=== PATIENT | female | born 1980 | race Caucasian/White ===

== ENCOUNTER → 2021-01-04 09:55 | Outpatient (CLI) | payer SELFPAY, OTHER ==
[2014-08-24 08:30] VITALS: BMI 35.2
--- NOTE | 2021-01-04 10:06 | RAD_ITS ---
HISTORY: PAIN IN L FOOT/ANKLE/HEEL. TECHNIQUE: XR Ankle Min 3 Views. Number of images including paperwork: 3. COMPARISON: None. FINDINGS: OSSEOUS STRUCTURES: No acute fracture. Smooth talar dome. Mineralization unremarkable. JOINT SPACES: Ankle mortise maintained. No dislocation. RAD/Ankle min 3 Views IMPRESSION: No acute fracture or dislocation identified in the left ankle. at 1501 Reported and signed by: Ebony Gomez MD Electronically Signed: Ebony Gomez MD at 15:00 EDT Tel , Service support ,
== END ==
PROVIDERS: PCP Nurse Practitioner Family; Referring Provider Nurse Practitioner Family; Visit Provider Nurse Practitioner Family
DX: M25.572 Pain in left ankle and joints of left foot (principal); M79.672 Pain in left foot
CPT/HCPCS: 73610

== ENCOUNTER 2022-08-09 16:01 | Emergency (ER) | payer OTHER, SELFPAY ==
[2022-08-09 16:02] VITALS: BP 160/93; PULSE 112; RESP 16; TEMP 36.1; O2SAT 100; BMI 32.5
[2022-08-09 17:49] VITALS: O2SAT 99
--- NOTE | 2022-08-09 17:49 | EKG12_ITS ---
Test Reason : PALP Blood Pressure : / mmHG Vent. Rate : 106 BPM Atrial Rate : 106 BPM P-R Int : 168 ms QRS Dur : 088 ms QT Int : 364 ms P-R-T Axes : 037 001 034 degrees QTc Int : 483 ms Sinus tachycardia Otherwise normal ECG Confirmed by KAN PANIAGUA, FIDE ([id number]), science editor RAMIRO DUPONT ([id number]) on 08/13/2022 11:19:24 AM Referred By: Confirmed By:FIDE OMER MD
[2022-08-09 18:02] VITALS: BP 151/93; PULSE 100; RESP 14; O2SAT 99
--- NOTE | 2022-08-09 18:05 | EDS_ITS ---
HPI History of Present Illness Chief Complaint: Palpitations Narrative Narrative: 41-year-old female presenting for evaluation. She states that on Saturday she started to feel tingling throughout her whole entire body. She states that she felt a little bit off. 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 At that point she drank a lot of water over the course of the day and states she drank about a gallon. Yesterday she had liquid IV and some more water she states that her symptoms are improving although she did have a lot of diarrhea. Her diarrhea is also improving she is not nauseous but does not want to eat food. She can drink plenty of fluids without difficulty. She also states that her father who she saw over the weekend had a fever and nausea as well. The patient herself has not had a fever. She does not have a cough or shortness of breath but she is having palpitations. She states that her pulse ox at home when she checked it showed her heart rate being 120. She is not having chest pain. She does relate that she has had a slight headache. She states that ibuprofen is helping this. She does have a history of migraines. She does not think her headache is not severe. PFSH PFSH Medical History no medical history Allergy/AdvReac Type Severity Reaction Status Date / Time No Known Allergies Allergy Verified 08/09/22 16:07 Surgical History (Updated 08/09/22 @ 18:49 by Gudelia Melvin) H/O dilation and curettage Social History Smoking Status: Never smoker ROS ROS ED Constitutional Constitutional ED: Denies chills, fever(s) or sweats Eyes Eyes: Denies blurry vision or change in vision ENT ENT ED: Denies ear pain or sore throat Cardiovascular Cardiovascular: Reports palpitations and racing heartbeat; Denies chest pain Respiratory/Chest Respiratory/Chest: Denies cough, dyspnea or sputum Gastrointestinal Gastrointestinal: Reports diarrhea; Denies abdominal pain, constipation, nausea or vomiting Genitourinary Genitourinary ED: Denies dysuria, hematuria or urinary frequency Musculoskeletal Musculoskeletal: Denies arthralgias, myalgias or neck pain Integumentary Denies abscess, Abrasions or rash Neurologic Neurologic: Reports headache(s); Denies paresthesias Psychiatric Psychiatric: Denies anxiety, depression, suicidal ideation or suicidal thoughts Endocrine Endocrinology: Denies polydipsia or polyuria EXAM Physical Exam Const Vital Signs: 08/09/22 16:02 08/09/22 18:51 08/09/22 17:49 Temperature 97.0 F L Temperature Source Temporal Pulse Rate 112 H Respiratory Rate 16 Respiratory Effort Normal Non-Labored Respiratory Pattern Normal Blood Pressure 160/93 H Blood Pressure Mean 115 Pulse Ox 100 99 Oxygen Delivery Method Room Air Room Air 08/09/22 18:02 08/09/22 21:45 Temperature Temperature Source Pulse Rate 100 90 Respiratory Rate 14 16 Respiratory Effort Respiratory Pattern Blood Pressure 151/93 H 140/89 H Blood Pressure Mean 112 Pulse Ox 99 98 Oxygen Delivery Method Room Air Positive well nourished General Appearance ED: NAD; Negative for pallor HEENT Reports moist mucous membranes Negative for trauma or tenderness Eyes PERRL and EOMs intact bilaterally General Eye ED: Negative for pale conjunctiva or scleral icterus Neck no lymphadenopathy Chest Wall inspection of chest normal and palpation of chest normal Resp normal respiratory effort and clear to auscultation bilaterally Cardio regular rhythm Rate: tachycardic GI normal to inspection, nondistended, normoactive bowel sounds Back/Spine no CVA tenderness Extremity normal to inspection Neuro oriented x3 and CN's II-XII intact bilaterally Sensorium / Orientation: alert Psych mental status grossly normal Skin no rashes or lesions noted and no wounds General Skin Exam: Negative for jaundice or pallor MDM MDM MDM Narrative Medical decision making narrative: Patient presenting with a myriad of complaints. He states all of her symptoms started when she was painting and on ventilated room and did not drink a lot of water. She also states that she has a sick contact and that her father was sick over the weekend and she was in contact with him. He had a fever and nausea. The patient self states she is feeling better she is concerned her heart rate has been fast. She has been drinking fluids frequently over the last couple of days and describes a wave of tingling throughout her entire body. Since patient feels she might be dehydrated and her heart rate is fast I will check a CBC for white blood cell count, hemoglobin, differential. BMP for renal function and electrolytes, glucose and anion gap. EKG to assess for dysrhythmia due to palp itations. High-sensitivity troponin as well. I did obtain a D-dimer. Chest x- ray will also be included. CBC shows normal white blood cell count 8.2. Hemoglobin stable 13.6. Platelets are normal at 269. D-dimer was negative at 0.27. Renal function electrolytes within normal limits. High-sensitivity troponin 4. Delta troponin 5. Chest x-ray my interpretation shows no acute cardiopulmonary process. Radiologist services and agrees. At this point I feel the patient is stable for discharge. Return precautions were discussed. Impression: 1. Weakness unknown cause 2. Palpitations 3. Exposure to paint fumes Lab Data Labs: Laboratory Results - last 24 hr 08/09/22 08/09/22 08/09/22 18:40 18:40 18:40 WBC 8.2 RBC 4.60 Hgb 13.6 Hct 41.3 MCV 89.8 MCH 29.6 MCHC 32.9 RDW Std Deviation 44.8 H RDW Coeff of Soo 13.7 Plt Count 269 MPV 9.6 Immature Gran % (Auto) 0.200 Neut % (Auto) 78.6 H Lymph % (Auto) 16.3 L [place] % (Auto) 4.3 Eos % (Auto) 0.2 Baso % (Auto) 0.4 Absolute Neuts (auto) 6.4 Absolute Lymphs (auto) 1.34 Nucleated RBC % 0 D-Dimer Quant (PE/DVT) 0.27 Sodium 140 Potassium 3.6 Chloride 107 Carbon Dioxide 25.0 Anion Gap 8 BUN 9 Creatinine 0.80 Estim Creat Clear Calc 84.88 Est GFR (MDRD) Af Amer 100 Est GFR (MDRD) Non-Af 83 BUN/Creatinine Ratio 11.2 Glucose 113 H Calcium 9.3 Troponin I High Sens 4 08/09/22 21:18 WBC RBC Hgb Hct MCV MCH MCHC RDW Std Deviation RDW Coeff of Soo Plt Count MPV Immature Gran % (Auto) Neut % (Auto) Lymph % (Auto) [place] % (Auto) Eos % (Auto) Baso % (Auto) Absolute Neuts (auto) Absolute Lymphs (auto) Nucleated RBC % D-Dimer Quant (PE/DVT) Sodium Potassium Chloride Carbon Dioxide Anion Gap BUN Creatinine Estim Creat Clear Calc Est GFR (MDRD) Af Amer Est GFR (MDRD) Non-Af BUN/Creatinine Ratio Glucose Calcium Troponin I High Sens 5 Radiography Diagnostic Testing: Clinical Impression(s) from Imaging Studies Chest X-Ray 08/09/22 18:15 IMPRESSION: No radiographic evidence of acute cardiopulmonary disease. Electronically Signed: Shmuel Watters MD at 18:28 EST , Discharge Plan Triage Chief Complaint: Palpitations Other Complaint: Numb/Ting ED Provider: Naren Catsillo Dx/Rx/DC Orders Instructions: ED Palpitations, ED Weakness (Uncertain Cause) Primary Care Provider: Care Physician,No Primary Referrals: NOT,DEFINED [Non-Staff] - Disposition Disposition: Home, Self Care Discharge Date/Time: 08/09/22 21:46
--- NOTE | 2022-08-09 18:15 | RAD_ITS ---
INDICATION: Chest pain EXAMINATION/TECHNIQUE: X-RAY - XR Chest 1 View COMPARISON: None. FINDINGS: LINES/DEVICES: None. LUNGS: No consolidation, edema or effusion. No pneumothorax. MEDIASTINUM AND CARDIOVASCULAR STRUCTURES: Cardiac silhouette not enlarged. Central airways and mediastinal contour are unremarkable. RAD/Chest 1 View (Portable) IMPRESSION: No radiographic evidence of acute cardiopulmonary disease. Electronically Signed: Shmuel Watters MD at 18:28 EST ,
[2022-08-09] MEDS: 0.9% Normal Saline 1,000 ML 1000 ML IV (18:47)
[2022-08-09 19:07] LABS: Absolute Lymphocyte Count 1.34 X10^3/uL (0.83-4.51); Absolute Neutrophil Count 6.4 X10^3/uL (2.0-7.7); Basophil# 0.03 X10^3/uL; Basophil% 0.4 % (0-1); Eosinophil# 0.02 X10^3/uL; Eosinophils% 0.2 % (0-5); Hematocrit 41.3 % (37-47); Hemoglobin 13.6 g/dL (12.0-15.0); Lymphocyte # 1.34 X10^3/ul (0.83-4.51); Lymphocyte % 16.3 % (19-41); Mean Corp Hgb Conc 32.9 g/dL (32-36); Mean Corpuscular Hgb 29.6 pg (27.0-32.0); Mean Corpuscular Volume 89.8 fL (81-99); Mean Platelet Vol. 9.6 fl (6.2-12.0); Monocyte# 0.35 X10^3/uL; Monocyte% 4.3 % (0-10); NRBC Flagged by Analyzer 0 % (0-5); Neutrophil # 6.44 X10^3/uL (2.7-7.7); Neutrophil % 78.6 % (47-70); Platelet Count 269 K/mm3 (150-450); RBC Distribution Width CV 13.7 % (11.6-14.6); RBC Distribution Width SD 44.8 fl (35.1-43.9); White Blood Count 8.2 K/mm3 (4.4-11.0)
[2022-08-09 19:21] LABS: D-Dimer Quantitative (DVT/PE) 0.27 FEU/ug/m (0.27-0.49)
[2022-08-09 19:26] LABS: Anion Gap 8 (5-15); BUN 9 mg/dL (7-18); BUN/Creat Ratio 11.2 RATIO (10-20); Calcium,Total 9.3 mg/dL (8.5-10.1); Chloride 107 mmol/L (98-107); EST Glomerular Filtration Rate 83 mL/min (>60); Est Glom Filt Rate - Afr Amer 100 mL/min (>60); Estimated Creatinine Clearance 84.88 ml/min; Glucose 113 mg/dL (74-106); Potassium 3.6 mmol/L (3.5-5.1); Sodium Level 140 mmol/L (136-145); Troponin-I HS (w/2H Reflex) 4 pg/mL (3.0-54.0)
[2022-08-09 21:06] LABS: Reflex Troponin-HS? (from REC) Y
[2022-08-09 21:45] VITALS: BP 140/89; PULSE 90; RESP 16; O2SAT 98
[2022-08-09 21:56] LABS: Troponin-I HS 5 pg/mL (3.0-54.0)
== END 2022-08-09 21:46 | disposition home or self-care (01) ==
PROVIDERS: Emergency Provider Student in an Organized Health Care Education/Training Program; Visit Provider Student in an Organized Health Care Education/Training Program
DX: R00.2 Palpitations (principal); R53.1 Weakness; R19.7 Diarrhea, unspecified; R20.2 Paresthesia of skin; Z77.098 Contact with and (suspected) exposure to other hazardous, chiefly nonmedicinal, chemicals
CPT/HCPCS: 71045; 80048; 84484; 85025; 85379; 93005; 96360; 96361; 99284; J7030

== ENCOUNTER 2022-08-23 09:36 | Emergency (ER) | payer OTHER, SELFPAY ==
[2022-08-23 09:38] VITALS: BP 173/91; PULSE 97; RESP 18; TEMP 36.4; O2SAT 97; BMI 31.9
--- NOTE | 2022-08-23 10:03 | EKG12_ITS ---
Test Reason : WEAKNESS Blood Pressure : / mmHG Vent. Rate : 104 BPM Atrial Rate : 104 BPM P-R Int : 156 ms QRS Dur : 082 ms QT Int : 328 ms P-R-T Axes : 032 003 057 degrees QTc Int : 431 ms Sinus tachycardia Possible Left atrial enlargement Nonspecific T wave abnormality Abnormal ECG Confirmed by JONH PANIAGUA, ROMA ([id number]), editorial assistant RAMIRO DUPONT ([id number]) on 08/27/2022 12:12:56 P M Referred By: Confirmed By:AYSHA BORJA MD
--- NOTE | 2022-08-23 10:03 | EDS_ITS ---
HPI History of Present Illness Chief Complaint: Weakness Informant: patient and spouse/S.O. Onset/Context/Timing Onset: Weeks (2) Timing: Intermittent Quality: Shaky on the inside, weak all over Current Severity: Moderate Maximum Severity: Moderate Worsened by: Nothing Relieved by: Nothing Associated Symptoms Associated Symptoms: Denies Narrative Narrative: Patient states she is having episodes of feeling really weak and shaky on the inside. She states that the symptoms are sort of like having caffeine intoxication although she drinks very little caffeine and not regularly, and has not changed those intake patterns recently, and there is no association with caffeine intake in the symptoms. She denies any other focal symptoms or fevers. She was seen here about 2 weeks ago near the onset of this. States she has been drinking fluids. She did have some occasional diarrhea, that seem to be associated with an episode starting. She did not have an episode last night. She states nothing is different today. [facility] Medical History no medical history no medical history Home Medications levothyroxine 75 mcg capsule 75 mcg PO DAILY #30 caps 08/23/22 [Rx Last Taken Unknown] Allergy/AdvReac Type Severity Reaction Status Date / Time No Known Allergies Allergy Verified 08/09/22 16:07 Surgical History H/O dilation and curettage Social History Smoking Status: Never smoker ROS ROS ED Constitutional Constitutional ED: Reports fatigue, weakness and other Details: Shaky on the inside ; Denies chills or fever(s) Eyes Eyes: Denies change in vision or diplopia ENT ENT ED: Denies rhinorrhea or sore throat Cardiovascular Cardiovascular: Denies chest pain or palpitations Respiratory/Chest Respiratory/Chest: Denies cough or dyspnea Gastrointestinal Gastrointestinal: Reports diarrhea; Denies abdominal pain, nausea or vomiting Genitourinary Genitourinary ED: Denies dysuria or hematuria Musculoskeletal Musculoskeletal: Denies back pain or neck pain Integumentary Denies abscess or rash Neurologic Neurologic: Denies headache(s), paresthesias or weakness Psychiatric Psychiatric: Denies anxiety or suicidal thoughts EXAM Physical Exam Const Vital Signs: 08/23/22 09:38 08/23/22 09:56 08/23/22 12:27 Temperature 97.6 F L Temperature Source Temporal Pulse Rate 97 97 Respiratory Rate 18 12 Respiratory Effort Normal Respiratory Pattern Normal Blood Pressure 173/91 H 129/81 H Blood Pressure Mean 118 97 Pulse Ox 97 97 Oxygen Delivery Method Room Air Room Air Positive well nourished and well developed General Appearance ED: well developed and NAD HEENT Reports moist mucous membranes normocephalic and atraumatic Eyes PERRL and EOMs intact bilaterally Neck full ROM, no lymphadenopathy and supple Neck Narrative: No tenderness or thyromegaly Resp normal respiratory effort and clear to auscultation bilaterally Cardio regular rate, regular rhythm and no murmurs Cardio Narrative: Mild tachycardia GI non-tender and non-distended Auscultation: normoactive bowel sounds Palpation: soft Back/Spine no CVA tenderness General Back: other FROM Extremity normal to inspection General Extremety ED: Negative for edema, pulses abnormal or tenderness General Extremity: Negative for edema or pulses abnormal Neuro oriented x3, CN's II-XII intact bilaterally and no sensory deficits noted Sensorium / Orientation: awake and alert Motor Exam: strength 5/5 throughout Psych Psych Narrative: Flat affect, keenly alert Skin no rashes or lesions noted and no wounds Skin Narrative: Dry. Not diaphoretic. Normal-appearing. MDM MDM MDM Narrative Medical decision making narrative: Screening labs were obtained, I added a TSH which was not obtained during her last visit. It is very high at 38.5, suggesting that the patient is acutely hypothyroid. The rest of the work-up is unremarkable. While we were waiting for these test to return, since her blood pressure was 173/91, I gave her a dose of clonidine. This came down to 129/81 but the patient stated that she really did not feel very different, her vital signs are stable otherwise and unremarkable. She confirms that she does feel cold a lot, and has just been fatigued more so than any other symptom, probably longer than this past 2 weeks. She has not been constipated, and she does not have any edema or any symptoms to suggest a pericardial effusion. Patient does not have a doctor. We discussed getting 1 where she lives versus here in [place], she brings her children to the doctor here in [place] and prefers to have someone here. The next doctor on the unassigned list with Dr. Arango, so I discussed all this with her, she advised adding free T3, free T4, and thyroid antibodies which we will send prior to the patient being discharged on levothyroxine 75 mcg daily and she will follow-up as an outpatient. Lab Data Attestation: I reviewed the patient's lab results. Labs: Laboratory Results - last 24 hr 08/23/22 08/23/22 08/23/22 10:00 10:00 10:15 WBC 6.9 RBC 4.57 Hgb 13.8 Hct 40.7 MCV 89.1 MCH 30.2 MCHC 33.9 RDW Std Deviation 42.6 RDW Coeff of Soo 13.0 Plt Count 313 MPV 9.3 Immature Gran % (Auto) 0.100 Neut % (Auto) 81.5 H Lymph % (Auto) 14.6 L [place] % (Auto) 3.4 Eos % (Auto) 0.3 Baso % (Auto) 0.1 Absolute Neuts (auto) 5.6 Absolute Lymphs (auto) 1.00 Nucleated RBC % 0 Sodium 139 Potassium 3.7 Chloride 107 Carbon Dioxide 25.0 Anion Gap 7 BUN 8 Creatinine 0.78 Estim Creat Clear Calc 86.16 Est GFR (MDRD) Af Amer 103 Est GFR (MDRD) Non-Af 85 BUN/Creatinine Ratio 10.3 Glucose 127 H Calcium 9.2 Total Bilirubin 1.00 AST 11 L ALT 11 L Alkaline Phosphatase 69 Total Protein 8.1 Albumin 4.1 Globulin 4.0 Albumin/Globulin Ratio 1.0 TSH 38.50 H Urine Color Straw Urine Clarity Clear Urine pH 7.0 Ur Specific [place] 1.010 Urine Protein Negative Urine Glucose (UA) Normal Urine Ketones 50 H Urine Occult Blood 10 H Urine Nitrite Negative Urine Bilirubin Negative Urine Urobilinogen Normal Ur Leukocyte Esterase Negative Urine RBC 0 SEEN Urine WBC 0 SEEN Ur Squamous Epith Cells 0-5 SEEN Urine Bacteria 0 SEEN Urine Mucus 0 SEEN Rhythm Strip Rhythm Strip: Sinus Rhythm Rate: 95 Ectopy: None EKG Initial EKG: Attestation: I personally reviewed and interpreted this EKG as follows: Interpretation: Sinus Rhythm, No Acute Injury Pattern and Non-Specific ST Changes Discharge Plan Triage Chief Complaint: Weakness ED Provider: Marino Emanuel Dx/Rx/DC Orders Clinical Impression: Hypothyroidism Instructions: ED Hypothyroidism Prescriptions: New levothyroxine 75 mcg capsule 75 mcg PO DAILY Qty: 30 1RF Primary Care Provider: Care Physician,No Primary Referrals: Katlin Arango DO [Med Staff - Active Staff] - (Call for appointment to be seen in the next couple weeks) Care Physician,No Primary [Primary Care Provider] - Disposition Disposition: Home, Self Care
[2022-08-23 10:19] LABS: Absolute Neutrophil Count 5.6 X10^3/uL (2.0-7.7); Basophil# 0.01 X10^3/uL; Basophil% 0.1 % (0-1); Eosinophil# 0.02 X10^3/uL; Eosinophils% 0.3 % (0-5); Hematocrit 40.7 % (37-47); Hemoglobin 13.8 g/dL (12.0-15.0); Lymphocyte % 14.6 % (19-41); Mean Corp Hgb Conc 33.9 g/dL (32-36); Mean Corpuscular Hgb 30.2 pg (27.0-32.0); Mean Corpuscular Volume 89.1 fL (81-99); Mean Platelet Vol. 9.3 fl (6.2-12.0); Monocyte# 0.23 X10^3/uL; Monocyte% 3.4 % (0-10); NRBC Flagged by Analyzer 0 % (0-5); Neutrophil # 5.59 X10^3/uL (2.7-7.7); Neutrophil % 81.5 % (47-70); Platelet Count 313 K/mm3 (150-450); RBC Distribution Width SD 42.6 fl (35.1-43.9); Red Blood Count 4.57 M/mm3 (4.2-5.4); White Blood Count 6.9 K/mm3 (4.4-11.0)
[2022-08-23 10:25] LABS: Bacteria 0 SEEN /hpf (None Seen); Color, Urine Straw (Yellow); Glucose, Dipstick Normal (Normal); Ketone-Dipstick 50 mg/dl (Negative); Leukocyte Esterase-Dipstick Negative /ul (Negative); Mucous, Urine 0 SEEN /hpf (<or=2+); Nitrite-Dipstick Negative (Negative); Occult Blood-Urine 10 /ul (Negative); Protein-Dipstick Negative (Negative); Red Blood Cells-Urine 0 SEEN /hpf (0-5); Urine Bilirubin Dipstick Negative (Negative); Urine Clarity Clear (Clear); Urine Urobilinogen Normal (Normal); White Blood Cells 0 SEEN /hpf (0-5)
[2022-08-23] MEDS: 0.9% Normal Saline 1,000 ML 999 ML IV (10:27)
[2022-08-23] MEDS: cloNIDine HCl 0.2 MG Tablet PO (10:29)
[2022-08-23 10:35] LABS: Squamous Epithelial Cells - UA 0-5 SEEN /hpf (5-10)
[2022-08-23 10:39] LABS: AST(SGOT) 11 U/L (15-37); Alanine Aminotransfer ALT/SGPT 11 U/L (13-56); Albumin, Serum 4.1 g/dL (3.2-5.0); Alkaline Phosphatase 69 U/L (45-117); Anion Gap 7 (5-15); BUN 8 mg/dL (7-18); BUN/Creat Ratio 10.3 RATIO (10-20); Calcium,Total 9.2 mg/dL (8.5-10.1); Chloride 107 mmol/L (98-107); Creatinine, Serum 0.78 mg/dL (0.55-1.02); EST Glomerular Filtration Rate 85 mL/min (>60); Est Glom Filt Rate - Afr Amer 103 mL/min (>60); Estimated Creatinine Clearance 86.16 ml/min; Glucose 127 mg/dL (74-106); Potassium 3.7 mmol/L (3.5-5.1); Protein, Total 8.1 g/dL (6.4-8.2); Sodium Level 139 mmol/L (136-145)
[2022-08-23 12:27] VITALS: BP 129/81; PULSE 97; RESP 12; O2SAT 97
[2022-08-23 14:04] LABS: Free T3 2.2 pg/mL (2.18-3.98); T4 Free Direct 0.74 ng/dL (0.76-1.46)
[2022-08-23 14:05] VITALS: RESP 16
[2022-08-27 16:09] LABS: Thyroid Peroxidase AB 319 IU/mL (0-34)
[2022-08-27 16:20] LABS: Thyroglobulin Antibody < 1.0 IU/mL (0.0-0.9)
== END 2022-08-23 14:31 | disposition home or self-care (01) ==
PROVIDERS: Emergency Provider Emergency Medicine; Visit Provider Emergency Medicine
DX: E03.9 Hypothyroidism, unspecified (principal); R03.0 Elevated blood-pressure reading, without diagnosis of hypertension
CPT/HCPCS: 80053; 81001; 84439; 84443; 84481; 85025; 86376; 86800; 87811; 93005; 99285; J7040; A4216

== ENCOUNTER 2022-11-20 12:15 | Emergency (ER) | payer OTHER, SELFPAY ==
[2022-11-20 12:15] VITALS: BP 133/85; PULSE 101; RESP 18; TEMP 35.9; O2SAT 99
[2022-11-20 12:28] VITALS: BMI 31.1
[2022-11-20] MEDS: 0.9% Normal Saline 1,000 ML 1000 ML IV (13:34)
[2022-11-20 13:47] LABS: Absolute Lymphocyte Count 1.19 X10^3/uL (0.83-4.51); Absolute Neutrophil Count 5.4 X10^3/uL (2.0-7.7); Basophil# 0.02 X10^3/uL; Basophil% 0.3 % (0-1); Eosinophil# 0.01 X10^3/uL; Eosinophils% 0.1 % (0-5); Hematocrit 44.6 % (37-47); Hemoglobin 14.3 g/dL (12.0-15.0); Lymphocyte # 1.19 X10^3/ul (0.83-4.51); Lymphocyte % 17.1 % (19-41); Mean Corp Hgb Conc 32.1 g/dL (32-36); Mean Corpuscular Hgb 29.5 pg (27.0-32.0); Mean Platelet Vol. 9.6 fl (6.2-12.0); Monocyte# 0.36 X10^3/uL; Monocyte% 5.2 % (0-10); NRBC Flagged by Analyzer 0 % (0-5); Neutrophil # 5.37 X10^3/uL (2.7-7.7); Neutrophil % 77.2 % (47-70); Platelet Count 337 K/mm3 (150-450); RBC Distribution Width CV 12.8 % (11.6-14.6); Red Blood Count 4.85 M/mm3 (4.2-5.4)
[2022-11-20 14:06] LABS: Anion Gap 5 (5-15); BUN 5 mg/dL (7-18); Calcium,Total 9.7 mg/dL (8.5-10.1); Chloride 105 mmol/L (98-107); Creatinine, Serum 0.83 mg/dL (0.55-1.02); EST Glomerular Filtration Rate 79 mL/min (>60); Est Glom Filt Rate - Afr Amer 96 mL/min (>60); Estimated Creatinine Clearance 80.97 ml/min; Glucose 127 mg/dL (74-106); Potassium 3.7 mmol/L (3.5-5.1); Sodium Level 137 mmol/L (136-145); Thyroid Stim Hormone (TSH) 2.62 uIU/mL (0.358-3.74)
--- NOTE | 2022-11-20 15:16 | EDS_ITS ---
HPI History of Present Illness Chief Complaint: Anxiety Detail of Chief Complaint: Insomnia, anxiety, poor p.o. intake Informant: patient, spouse/S.O. and family Onset/Context/Timing Onset: Weeks (Last night of normal sleep Saturday. This was preceded by 1 hour of sleep prior night.) Context: Sudden Onset Timing: Intermittent Quality: Reportedly 3 to 4 hours asleep only. Location: Not applicable Current Severity: Moderate Maximum Severity: Moderate Worsened by: Unknown Relieved by: None thing Associated Symptoms Associated Symptoms: Slight anxiousness, fatigue, poor p.o. intake, thirst Narrative Narrative: Patient is a 42-year-old woman with history of recent diagnosis of hypothyroidism and depression. She was seen by her physician and told she could not prescribe antianxiety medication. She was given hydroxyzine however. She states her sleep is worse and she was prescribed hydroxyzine. Patient was informed hydroxylate interferes with REM sleep and not surprising that her sleep has gotten worse. She presently denies headache, visual, ocular auditory symptoms. Denies trouble with speech or swallowing. She denies cardiac respiratory symptoms. She denies GI symptoms. She denies symptoms. She denies paresthesia, anesthesia or motor weakness. She denies problems with coordination or balance. She was recently seen by therapist who prescribed trazodone. She took 1 dose last evening and states it did not help. Patient was informed it may take 1 to 2 weeks for the trazodone to help. Prior similar symptoms: Yes Recent Illness/Hospitalization: Yes PFSH [facility] Home Medications levothyroxine 75 mcg capsule 75 mcg PO DAILY #30 caps 08/23/22 [Rx Last Taken Unknown] clorazepate dipotassium 3.75 mg tablet 3.75 mg PO TID Anxiety #30 tabs 11/20/22 [Rx Last Taken Unknown] escitalopram oxalate 10 mg tablet 10 mg PO DAILY 11/20/22 [History Last Taken Unknown] hydroxyzine HCl 25 mg tablet 25 mg PO QHS 11/20/22 [History Last Taken Unknown] trazodone 50 mg tablet 50 mg PO DAILY 11/20/22 [History Last Taken Unknown] zolpidem 10 mg tablet (Ambien) 10 mg PO QHS #7 tabs 11/20/22 [Rx Last Taken Unknown] zolpidem 5 mg tablet 5 mg PO QHS 11/20/22 [History Last Taken Unknown] Allergy/AdvReac Type Severity Reaction Status Date / Time No Known Allergies Allergy Verified 08/09/22 16:07 Surgical History H/O dilation and curettage Social History (Updated 11/20/22 @ 15:[address] Luis Valerio MD) household members: spouse Smoking Status: Never smoker substance use type: does not use EXAM Physical Exam Const Vital Signs: 11/20/22 12:15 Temperature 96.7 F L Temperature Source Temporal Pulse Rate 101 H Respiratory Rate 18 Blood Pressure 133/85 H Blood Pressure Mean 101 Pulse Ox 99 Oxygen Delivery Method Room Air Positive well nourished and well developed General Appearance ED: well developed and NAD; Negative for pallor HEENT Reports dry mucous membranes HEENT Narrative: Head is atraumatic normocephalic. Ears are normal. Nares are patent. Posterior pharynx is normal. Mouth ED: Yes dry mucous membranes Mouth: dry mucous membranes Eyes PERRL and EOMs intact bilaterally General Eye ED: Negative for pale conjunctiva or scleral icterus Neck no lymphadenopathy and supple Chest Wall inspection of chest normal and palpation of chest normal Resp normal respiratory effort and clear to auscultation bilaterally Cardio regular rate, regular rhythm, S1 normal heart sound, S2 normal heart sound and no murmurs GI normal to inspection, nondistended, normoactive bowel sounds, non-tender and non-distended; Negative for hepatosplenomegaly or no masses Palpation: soft Back/Spine no CVA tenderness Thoracic Spine / Upper Back: Negative for thoracic spinal tenderness Lumbar Spine / Lower Back: Negative for lumbar spinal tenderness Extremity normal to inspection General Extremety ED: Negative for edema or tenderness General Extremity: Negative for edema Neuro oriented x3, CN's II-XII intact bilaterally and no sensory deficits noted Sensorium / Orientation: alert Motor Exam: strength 5/5 throughout Psych Mood & Affect: depressed Skin no rashes or lesions noted, no wounds and skin turgor normal General Skin Exam: Negative for jaundice or pallor MDM MDM MDM Narrative Medical decision making narrative: With poor p.o. intake BMP was obtained to assess renal function, electrolytes CO2 anion gap. CBC was obtained to evaluate white count differential and confirm that she is not anemic. TSH was ordered since she was recently started on levothyroxine to assess level. Since clinically patient appears dehydrated 1 L of normal saline was ordered. History & Record Review Additional record(s) reviewed:: Prior inpatient record ( related authored by Dr. Benjamin Queen and Dr. Stevan Lowe) and Prior ED visit (Diagnosis hypothyroidism August 2022) Lab Data Attestation: I reviewed the patient's lab results. Lab results narrative: Laboratory results are unremarkable. Glucose is slightly elevated 127 which is not significant. TSH was normal. Labs: Laboratory Results - last 24 hr 11/20/22 11/20/22 13:35 13:35 WBC 7.0 RBC 4.85 Hgb 14.3 Hct 44.6 MCV 92.0 MCH 29.5 MCHC 32.1 RDW Std Deviation 43.0 RDW Coeff of Soo 12.8 Plt Count 337 MPV 9.6 Immature Gran % (Auto) 0.100 Neut % (Auto) 77.2 H Lymph % (Auto) 17.1 L [place] % (Auto) 5.2 Eos % (Auto) 0.1 Baso % (Auto) 0.3 Absolute Neuts (auto) 5.4 Absolute Lymphs (auto) 1.19 Nucleated RBC % 0 Sodium 137 Potassium 3.7 Chloride 105 Carbon Dioxide 27.0 Anion Gap 5 BUN 5 L Creatinine 0.83 Estim Creat Clear Calc 80.97 Est GFR (MDRD) Af Amer 96 Est GFR (MDRD) Non-Af 79 BUN/Creatinine Ratio 6.0 L Glucose 127 H Calcium 9.7 TSH 2.62 Treatment and Re-Evaluation :: Patient, and family members were informed of laboratory results and thought process. At this point she was instructed to discontinue the hydroxyzine which would interfere with sleep. She was instructed to take Lexapro in the morning and not evening. She was prescribed Tranxene which is a mild antianxiety lytic and a larger dose of Ambien since she has results when she takes 2 5 mg tablets. Instructions were 1 tablet not to tablets at bedtime. Discharge Plan Triage Chief Complaint: Anxiety ED Provider: Luis Valerio Dx/Rx/DC Orders Clinical Impression: Insomnia, Anxiety Prescriptions: New clorazepate dipotassium 3.75 mg tablet 3.75 mg PO TID Qty: 30 0RF zolpidem [Ambien] 10 mg tablet 10 mg PO QHS Qty: 7 0RF No Action levothyroxine 75 mcg capsule 75 mcg PO DAILY Qty: 30 1RF trazodone 50 mg tablet 50 mg PO DAILY Label Comments: take 1 tablet by mouth at bedtime hydroxyzine HCl 25 mg tablet 25 mg PO QHS Label Comments: take 1/2 tablet by mouth every 6 to 8 hours DURING THE DAY if nee... (REFER TO PRESCRIPTION NOTES). zolpidem 5 mg tablet 5 mg PO QHS Label Comments: take 1 tablet by mouth at bedtime escitalopram oxalate 10 mg tablet 10 mg PO DAILY Label Comments: take 1 tablet by mouth once daily Primary Care Provider: Brennan Deleon NP Referrals: Brennan Deleon NP, [employer] [Primary Care Provider] - Disposition Disposition: Acute Care Hospital
[2022-11-20 16:06] VITALS: BP 162/88; PULSE 97; RESP 16; O2SAT 97
== END 2022-11-20 16:18 | disposition home or self-care (01) ==
PROVIDERS: Emergency Provider Emergency Medicine; PCP Nurse Practitioner Family; Visit Provider Emergency Medicine
DX: G47.00 Insomnia, unspecified (principal); F41.9 Anxiety disorder, unspecified; E03.9 Hypothyroidism, unspecified; F32.A Depression, unspecified; Z79.899 Other long term (current) drug therapy; E86.0 Dehydration
CPT/HCPCS: 80048; 84443; 85025; 96360; 96361; 99285; J7030